=== PATIENT | female | born 1940 | race Caucasian/White ===

== ENCOUNTER 2016-08-18 16:14 | Outpatient (CLI) | payer MEDICARE, OTHER ==
--- NOTE | 2016-08-18 17:21 | Diagnostic Imaging Report ---
[facility] [id number] [facility] [address], [place]. [address] Report Submission Date: Aug 18, 2016 4:50:05 PM CDT Patient Study Name: ONESIMO GRIFFIN Date: Aug 18, 2016 4:27:30 PM CDT Modality Type: CR Gender: F Description: CHEST : 40 Institution: [facility] Physician: WALESKA LIEBERMAN Chest PA and lateral views Clinical history: Cough with fever and muscle ache for 1 week of the head Mild pulmonary emphysema with hyperinflation of both lung tirado. Borderline heart size with the atherosclerotic thoracic aorta. No acute infiltrates or pleural effusion. Impression: Pulmonary emphysema without acute infiltrates or pleural effusion Electronically signed on Aug 18, 2016 4:50:05 PM CDT by: Stephon STROUD
== END 2016-08-18 16:15 ==
LOC: RAD 16:14
PROVIDERS: ATTEND Physician Assistant
DX: R79.81 Abnormal blood-gas level (principal)
CPT/HCPCS: 71020

== ENCOUNTER 2017-07-21 12:06 | Outpatient (CLI) | payer MEDICARE, OTHER ==
[2017-07-21 12:53] LABS: eGFR (African) > 60; eGFR (Non-African) > 60
== END 2017-07-21 12:07 ==
LOC: LAB 12:06
PROVIDERS: ATTEND Pediatrics
DX: E03.9 Hypothyroidism, unspecified (principal); M85.80 Other specified disorders of bone density and structure, unspecified site
CPT/HCPCS: 36415; 80048